=== PATIENT | female | born 1975 | race African-American/Black ===

== ENCOUNTER 2019-05-07 05:53 | Emergency (ER) | payer MEDICARE, MEDICAID ==
[~2019-05-07] VITALS: Ht 152.4 cm; Wt 91.0 kg
[~2019-05-07 05:53] MED LIST: ASPI-986 PO; GABA-529 PO; VELPHORO
[2019-05-07] MEDS ORDERED: CYCLOBENZAPRINE 10MG TABLET PO ONE (06:45)
[2019-05-07] MEDS ORDERED: KETOROLAC 60MG/2ML VIAL IM ONE (06:45)
[2019-05-07] MEDS ORDERED: HYDROCODONE/ACETAMINOPHEN 5/325MG TABLET PO ONE (08:30)
[2019-05-07 09:28] VITALS: BP 104/53
== END 2019-05-07 09:28 | disposition home or self-care (01) ==
LOC: ER 05:53
DX: M54.31 Sciatica, right side (principal); J45.909 Unspecified asthma, uncomplicated; I95.9 Hypotension, unspecified; Z87.448 Personal history of other diseases of urinary system; Z98.890 Other specified postprocedural states; Z90.5 Acquired absence of kidney; Z79.899 Other long term (current) drug therapy; Z88.1 Allergy status to other antibiotic agents
CPT/HCPCS: 36415; 80048; 93971; 96372; 99284; J1885

== ENCOUNTER 2019-09-21 09:06 | Inpatient (IN) | payer MEDICARE, MEDICAID ==
[~2019-09-21] VITALS: Ht 152.4 cm; Wt 96.2 kg
[2019-09-21] MEDS ORDERED: ALBUTEROL (0.083%) 2.5MG/3ML NEB HHN STA (09:33)
[2019-09-21] MEDS ORDERED: METHYLPREDNISOLONE SOD SUCC 125 MG/2 ML VIAL IV STA (09:33)
[2019-09-21] MEDS ORDERED: IPRATROPIUM BROMIDE (0.02%) 0.5MG/2.5ML NEB HHN STA (09:33)
[2019-09-21 10:11] LABS: BASOPHILS % 0.7 % (0.0-2.0); EOSINOPHILS % 1.1 % (0.0-5.0); HEMATOCRIT. 35.4 % (36.0-48.0); HEMOGLOBIN. 11.7 g/dL (12.0-16.0); LYMPHOCYTES % 9.8 % (20.0-50.0); MEAN CORPUSCULAR HEMOGLOBIN 29.5 pg (28.0-32.0); MEAN CORPUSCULAR VOLUME 89.1 fL (81.0-99.0); MEAN PLATELET VOLUME 8.3 fl (7.4-10.4); MONOCYTES % 9.2 % (2.0-8.0); NEUTROPHILS % 79.2 % (40.0-76.0); PLATELET 182 x1000/uL (130-400); RED BLOOD CELL COUNT 3.97 mill/uL (4.2-5.4)
[2019-09-21 10:19] LABS: CHLORIDE 105 mEq/L (98-107)
[2019-09-21] MEDS: FUROSEMIDE 100MG/10ML VIAL IV STA ×2 (10:49→11:45)
[2019-09-21] MEDS ORDERED: DEXTROSE 50% WATER 50ML SYRINGE IV ONE (11:00)
[2019-09-21] MEDS ORDERED: INSULIN REGULAR (HUMULIN R) 300UNITS/3ML IV ONE (11:00)
[2019-09-21] MEDS ORDERED: ALBUTEROL (0.083%) 2.5MG/3ML NEB HHN ONE (11:00)
[2019-09-21] MEDS ORDERED: SODIUM BICARBONATE 8.4% 1 MEQ/ML 50ML SYR IV ONE (11:00)
[2019-09-21] MEDS ORDERED: LEVOFLOXACIN 750MG PREMIX 150 ML IV ONE (11:00)
[2019-09-21 11:59] LABS: BG BASE EXCESS -9.9 mmol/L (-2.0-2.0); BG BILEVEL POS AIRWAY PRESSURE 15/5; BG CARBOXYHEMOGLOBIN 0.6 % (0.5-1.5); BG DEOXYHEMOGLOBIN 2.2 % (0.0-5.0); BG FRACTION INSPIRED OXYGEN 50; BG METHEMOGLOBIN 0.4 % (0.0-1.5); BG OXYGEN SATURATION 97.8 % (92.0-98.5); BG OXYHEMOGLOBIN 96.8 % (94.0-97.0); BG PCO2 35.2 mmHg (35.0-45.0); BG PH 7.275 (7.350-7.450); BG SAMPLE SITE RIGHT BRACHIAL; BG TOTAL HEMOGLOBIN 12.5 g/dL (12.0-18.0); BG VENT MODE MASK - BIPAP; BG VENT RATE 14 set
[2019-09-21] MEDS ORDERED: ACETAMINOPHEN 325MG TABLET PO PRN (22:30)
[2019-09-21] MEDS ORDERED: IPRATROPIUM/ALBUTEROL 0.5-3(2.5)MG/3ML NEB HHN SCH (22:30)
[2019-09-21] MEDS ORDERED: IPRATROPIUM/ALBUTEROL 0.5-3(2.5)MG/3ML NEB HHN PRN (22:45)
[2019-09-21 23:20] LABS: CHLORIDE 103 mEq/L (98-107)
[2019-09-21] MEDS: IPRATROPIUM/ALBUTEROL 0.5-3(2.5)MG/3ML NEB HHN SCH (23:49)
[2019-09-22] VITALS (12 sets, daily range): BP systolic 90–133; BP diastolic 55–87
[2019-09-22] MEDS: IPRATROPIUM/ALBUTEROL 0.5-3(2.5)MG/3ML NEB HHN SCH ×5 (05:00→21:19)
[2019-09-22] MEDS: GABAPENTIN 100MG CAPSULE PO SCH ×3 (06:00→22:09)
[2019-09-22] MEDS: ENOXAPARIN 40MG/0.4ML SYR SUBCUT SCH (08:46)
[2019-09-22] MEDS: SERTRALINE HCL 100MG TABLET PO SCH (08:46)
[2019-09-22] MEDS: GUAIFENESIN-DM 200MG-20MG/10ML UDC PO PRN ×2 (10:58→16:38)
[2019-09-22] MEDS ORDERED: LEVOFLOXACIN 500MG TABLET PO SCH (11:00)
[2019-09-22] MEDS ORDERED: PREDNISONE 20MG TABLET PO NR (13:15)
[2019-09-22] MEDS: MONTELUKAST SODIUM 10MG TABLET PO SCH (16:36)
[2019-09-22] MEDS: ATORVASTATIN CALCIUM 40MG TABLET PO SCH (22:09)
[2019-09-23] VITALS (12 sets, daily range): BP systolic 88–118; BP diastolic 53–68
[2019-09-23] MEDS: IPRATROPIUM/ALBUTEROL 0.5-3(2.5)MG/3ML NEB HHN SCH ×6 (01:12→20:21)
[2019-09-23] MEDS: GABAPENTIN 100MG CAPSULE PO SCH ×3 (05:24→20:57)
[2019-09-23 09:04] LABS: HEMATOCRIT. 34.2 % (36.0-48.0); HEMOGLOBIN. 11.2 g/dL (12.0-16.0); MEAN CORPUSCULAR VOLUME 88.6 fL (81.0-99.0); MEAN PLATELET VOLUME 8.6 fl (7.4-10.4); PLATELET 183 x1000/uL (130-400); RED BLOOD CELL COUNT 3.86 mill/uL (4.2-5.4); RED CELL DISTRIBUTION WIDTH 15.3 % (11.6-14.6)
[2019-09-23] MEDS: SERTRALINE HCL 100MG TABLET PO SCH (09:17)
[2019-09-23] MEDS: PREDNISONE 20MG TABLET PO SCH (09:17)
[2019-09-23] MEDS: ENOXAPARIN 40MG/0.4ML SYR SUBCUT SCH (09:17)
[2019-09-23] MEDS ORDERED: LEVOFLOXACIN 250MG TABLET PO SCH (11:00)
[2019-09-23 14:14] LABS: PLATELET ESTIMATE NORMAL
[2019-09-23] MEDS ORDERED: [UNRECOGNIZED DRUG - REMARK] XX SCH (16:30)
[2019-09-23] MEDS: MONTELUKAST SODIUM 10MG TABLET PO SCH (16:59)
[2019-09-23] MEDS ORDERED: SODIUM CHLORIDE 10% FOR INH 15ML VIAL NEB INH NR (17:30)
[2019-09-23] MEDS ORDERED: VANCOMYCIN 1,500 MG in DEXT 5% WATER 250 ML IV NR (18:00)
[2019-09-23] MEDS ORDERED: MEROPENEM 500MG in NORMAL SALINE 50ML IV SCH (21:00)
[2019-09-23] MEDS: ATORVASTATIN CALCIUM 40MG TABLET PO SCH (21:00)
[2019-09-24] VITALS (12 sets, daily range): BP systolic 88–119; BP diastolic 48–78
[2019-09-24] MEDS: IPRATROPIUM/ALBUTEROL 0.5-3(2.5)MG/3ML NEB HHN SCH ×5 (04:20→20:33)
[2019-09-24] MEDS: GABAPENTIN 100MG CAPSULE PO SCH ×3 (06:14→21:10)
[2019-09-24] MEDS: MEROPENEM 500 MG in SODIUM CHLORIDE 0.9% 50 ML IV SCH ×2 (06:16→17:17)
[2019-09-24] MEDS: SERTRALINE HCL 100MG TABLET PO SCH (08:53)
[2019-09-24] MEDS: ENOXAPARIN 40MG/0.4ML SYR SUBCUT SCH (08:53)
[2019-09-24] MEDS: PREDNISONE 20MG TABLET PO SCH (08:53)
[2019-09-24 15:51] LABS: BG BASE EXCESS -0.2 mmol/L (-2.0-2.0); BG CARBOXYHEMOGLOBIN 0.3 % (0.5-1.5); BG FRACTION INSPIRED OXYGEN 36; BG HCO3 ACT 24.3 mmol/L (22.0-26.0); BG METHEMOGLOBIN 0.1 % (0.0-1.5); BG OXYHEMOGLOBIN 91.6 % (94.0-97.0); BG PCO2 38.9 mmHg (35.0-45.0); BG PH 7.413 (7.350-7.450); BG PO2 65.2 mmHg (75.0-100.0); BG SAMPLE SITE RIGHT RADIAL; BG TOTAL HEMOGLOBIN 11.9 g/dL (12.0-18.0); BG VENT MODE NASAL CANNULA
[2019-09-24] MEDS: MONTELUKAST SODIUM 10MG TABLET PO SCH (17:17)
[2019-09-24] MEDS: ATORVASTATIN CALCIUM 40MG TABLET PO SCH (21:10)
[2019-09-25] VITALS (12 sets, daily range): BP systolic 89–148; BP diastolic 48–80
[2019-09-25] MEDS: IPRATROPIUM/ALBUTEROL 0.5-3(2.5)MG/3ML NEB HHN SCH ×5 (00:05→16:27)
[2019-09-25] MEDS: GABAPENTIN 100MG CAPSULE PO SCH ×3 (05:33→21:00)
[2019-09-25] MEDS: MEROPENEM 500 MG in SODIUM CHLORIDE 0.9% 50 ML IV SCH ×2 (05:34→17:19)
[2019-09-25] MEDS: SERTRALINE HCL 100MG TABLET PO SCH (09:05)
[2019-09-25] MEDS: PREDNISONE 20MG TABLET PO SCH (09:05)
[2019-09-25] MEDS: ENOXAPARIN 40MG/0.4ML SYR SUBCUT SCH (09:06)
[2019-09-25 10:15] LABS: BG BASE EXCESS -5.2 mmol/L (-2.0-2.0); BG CARBOXYHEMOGLOBIN 0.4 % (0.5-1.5); BG DEOXYHEMOGLOBIN 9.4 % (0.0-5.0); BG FRACTION INSPIRED OXYGEN 32; BG HCO3 ACT 20.1 mmol/L (22.0-26.0); BG METHEMOGLOBIN 0.2 % (0.0-1.5); BG OXYGEN SATURATION 90.5 % (92.0-98.5); BG PCO2 38.1 mmHg (35.0-45.0); BG PO2 63.9 mmHg (75.0-100.0); BG SAMPLE SITE RIGHT RADIAL; BG TOTAL HEMOGLOBIN 12.1 g/dL (12.0-18.0); BG VENT MODE NASAL CANNULA
[2019-09-25] MEDS ORDERED: VANCOMYCIN 1 G PREMIX 200 ML IV NR (17:00)
[2019-09-25] MEDS: MONTELUKAST SODIUM 10MG TABLET PO SCH (17:19)
[2019-09-25] MEDS ORDERED: AZITHROMYCIN 500 MG TABLET PO NR (20:15)
[2019-09-25] MEDS: ATORVASTATIN CALCIUM 40MG TABLET PO SCH (20:55)
[2019-09-25] MEDS ORDERED: FLUTICASONE/VILANTEROL 200-25 BLST.W.DEV ORI SCH (21:00)
[2019-09-26] VITALS (10 sets, daily range): BP systolic 96–120; BP diastolic 58–76
[2019-09-26] MEDS: GABAPENTIN 100MG CAPSULE PO SCH ×2 (05:18→13:18)
[2019-09-26] MEDS: SERTRALINE HCL 100MG TABLET PO SCH (08:42)
[2019-09-26] MEDS: PREDNISONE 20MG TABLET PO SCH (08:42)
[2019-09-26] MEDS: ENOXAPARIN 40MG/0.4ML SYR SUBCUT SCH (08:43)
[2019-09-26] MEDS ORDERED: AZITHROMYCIN 500 MG TABLET PO SCH (09:00)
[2019-09-26] MEDS: MONTELUKAST SODIUM 10MG TABLET PO SCH (16:36)
== END 2019-09-26 21:15 | disposition home or self-care (01) | DRG 291 ==
LOC: ER 09:06 → 5EST 13:17 → EDBEDREQSVC 13:30 → EDBEDREQ 13:30 → EDBEDREQTM 22:23 → EDBEDREQSVC 22:23 → ENRESERV 23:25
PROVIDERS: ADMIT Internal Medicine Pulmonary Disease; ATTEND Internal Medicine Pulmonary Disease
PROC: 5A09457 Assistance with Respiratory Ventilation, 24-96 Consecutive Hours, Continuous Positive Airway Pressure (ICD-10-PCS; principal; 2019-09-21)
PROC: 5A1D70Z Performance of Urinary Filtration, Intermittent, Less than 6 Hours Per Day (ICD-10-PCS; 2019-09-21)
PROC: 5A1D70Z Performance of Urinary Filtration, Intermittent, Less than 6 Hours Per Day (ICD-10-PCS; 2019-09-22)
PROC: 5A1D70Z Performance of Urinary Filtration, Intermittent, Less than 6 Hours Per Day (ICD-10-PCS; 2019-09-22)
PROC: 5A09357 Assistance with Respiratory Ventilation, Less than 24 Consecutive Hours, Continuous Positive Airway Pressure (ICD-10-PCS; 2019-09-23)
PROC: 5A1D70Z Performance of Urinary Filtration, Intermittent, Less than 6 Hours Per Day (ICD-10-PCS; 2019-09-23)
PROC: 5A1D70Z Performance of Urinary Filtration, Intermittent, Less than 6 Hours Per Day (ICD-10-PCS; 2019-09-24)
DX: I13.2 Hypertensive heart and chronic kidney disease with heart failure and with stage 5 chronic kidney disease, or end stage renal disease (principal); I50.43 Acute on chronic combined systolic (congestive) and diastolic (congestive) heart failure; N18.6 End stage renal disease; J96.90 Respiratory failure, unspecified, unspecified whether with hypoxia or hypercapnia; J18.9 Pneumonia, unspecified organism; J45.901 Unspecified asthma with (acute) exacerbation; J47.1 Bronchiectasis with (acute) exacerbation; J47.0 Bronchiectasis with acute lower respiratory infection; T86.12 Kidney transplant failure; Z68.41 Body mass index [BMI] 40.0-44.9, adult; E87.70 Fluid overload, unspecified; E66.9 Obesity, unspecified; E78.5 Hyperlipidemia, unspecified; Y83.0 Surgical operation with transplant of whole organ as the cause of abnormal reaction of the patient, or of later complication, without mention of misadventure at the time of the procedure; Z99.2 Dependence on renal dialysis; Z90.5 Acquired absence of kidney; Y92.89 Other specified places as the place of occurrence of the external cause; Z82.49 Family history of ischemic heart disease and other diseases of the circulatory system; Z82.5 Family history of asthma and other chronic lower respiratory diseases; Z83.3 Family history of diabetes mellitus; Z88.1 Allergy status to other antibiotic agents; Z98.891 History of uterine scar from previous surgery
CPT/HCPCS: 36415; 36600; 71045; 71250; 80048; 80053; 80202; 82375; 82805; 82962; 83880; 84484; 85025; 87070; 93005; 94618; 94640; 94660; 96365; 96366; 96375; 99291; J1650; J1815; J1940; J1956; J2185; J2930; J3370; J3490; J7060; J7131; J7512